=== PATIENT | female | born 1985 | race Caucasian/White ===

== ENCOUNTER 2017-09-29 05:10 | Inpatient (IN) | payer BC ==
[~2017-09-29] VITALS: Ht 167.6 cm; Wt 108.9 kg
[2017-09-29] MEDS ORDERED: OXYTOCIN/NORMAL SALINE 1,000 ML IV SCH (05:20)
[2017-09-29] MEDS ORDERED: NALBUPHINE HCL 10 MG/ML AMP IVP PRN (05:30)
[2017-09-29] MEDS ORDERED: AMPICILLIN SODIUM 2 GM in NS 100 ML IV ONE (05:30)
[2017-09-29] MEDS ORDERED: TERBUTALINE SULFATE 1 MG/ML VIAL SUBCUT ONE (05:30)
[2017-09-29] MEDS ORDERED: AMPICILLIN SODIUM 2 GM VIAL ONE (05:34)
[2017-09-29 05:56] LABS: BASOPHILS % (AUTO) 0.3 % (0.0-2.0); EOSINOPHILS # (AUTO) 0.1 K/uL (0.0-0.4); EOSINOPHILS % (AUTO) 0.8 % (0.0-4.0); HEMOGLOBIN 12.5 g/dL (12.0-16.0); LYMPHOCYTES # (AUTO) 1.4 K/uL (1.0-5.5); LYMPHOCYTES % (AUTO) 12.1 % (20.5-51.5); MEAN CORPUSCULAR HEMOGLOBIN 29 pg (27-31); MEAN CORPUSCULAR HGB CONC 33 % (32-36); MEAN CORPUSCULAR VOLUME 88 fL (79.0-98.0); MONOCYTES # (AUTO) 0.5 K/uL (0.0-1.0); MONOCYTES % (AUTO) 4.7 % (1.7-9.3); NEUTROPHILS # (AUTO) 9.6 K/uL (1.8-7.7); NEUTROPHILS % (AUTO) 82.1 % (40.0-70.0); PLATELET COUNT (AUTO) 241 K/uL (130-430); RED CELL DISTRIBUTION WIDTH 12.4 % (9.0-15.0); WHITE BLOOD COUNT (AUTO) 11.6 K/uL (4.8-10.8)
[2017-09-29 06:05] VITALS: BP_SYST 136
[2017-09-29] MEDS: LR 1,000 ML IV SCH ×2 (06:07→14:12)
[2017-09-29] MEDS ORDERED: FLU VACC QS 2017-18(36MOS+)/PF 0.5 ML/SYR SYRINGE I.M. PRN (06:15)
[2017-09-29] MEDS: AMPICILLIN SODIUM 1 GM in NS 50 ML IV SCH ×3 (10:53→18:47)
[2017-09-29] MEDS ORDERED: FENT2mCg/mL-ROPIVA0.2%/NS EPID 150 ML EP ONE (14:33)
[2017-09-29] MEDS ORDERED: LR 500 ML IV ONE (15:05)
[2017-09-29] MEDS ORDERED: FENT2mCg/mL-ROPIVA0.2%/NS EPID 150 ML EP SCH (15:15)
[2017-09-29] MEDS ORDERED: ePHEDrine sulfate 50 MG/ML VIAL IVP PRN (15:15)
[2017-09-29] MEDS ORDERED: AMPICILLIN SODIUM 1 GM VIAL ONE (18:40)
[2017-09-29] MEDS ORDERED: ACETAMINOPHEN 325 MG TABLET PO PRN (23:15)
[2017-09-29] MEDS ORDERED: CLINDAMYCIN 900 mg/50mL D5W 50 ML IV ONE (23:27)
[2017-09-30] MEDS ORDERED: CLINDAMYCIN 900 MG in D5W 100 ML IV SCH ×2
[2017-09-30] MEDS: CEFAZOLIN 1 GM IVPB PREMIX 50 ML IV SCH (01:54)
[2017-09-30] MEDS: LR 1,000 ML IV SCH ×2 (03:00→11:09)
[2017-09-30] MEDS ORDERED: CEFAZOLIN 2 GM IVPB PREMIX 50 ML IV ONE (10:45)
--- NOTE | 2017-09-30 11:29 | NUR ---
INTEGUMENTARY EVALUATION: Late note for 09/30/17 secondary to patient care. Wound Consult received from Dr. Sow. Thank you, Dr. Sow, for the consult. Patient received in an L&D bed, awake, alert, and oriented. Patient is able to turn in bed independently. 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 Recent Labs: WBC 7.7, RBC 3.57, hemoglobin 10.5, hematocrit 31.1. Intrinsic factors that delay wound healing: Low RBC and H&H counts. Extrinsic factors that delay wound healing: Decreased mobility secondary to epidural. No microbiology reports. Patient is an increased risk for pressure ulcer development secondary to decreased mobility from use of an epidural for pain control. Will focus on having patient turn side to side every 2 hours, with assist as needed, for the duration of the patient's stay. An Isoflex REFUGIO surface with low air loss therapy will be utilized to provide patient a softer pressure redistribution surface with air loss therapy to maintain dry conditions. Integumentary Assessment: 1. Buttocks: Blanchable redness. Firmness to area, right greater than left. Recommend: Place patient on a [place] S3 bed with an Isoflex REFUGIO mattress, and initiate low air loss therapy. Encourage and assist patient as needed with repositioning side to side only every 2 hours with pillow support, and off-load pressure areas with pillows for pressure re-distribution. Perform skin care and monitor skin integrity Q shift.
--- NOTE | 2017-09-30 11:30 | NUR ---
INTEGUMENTARY EVALUATION: Wound Consult received from Dr. Sow. Thank you, Dr. Sow, for the consult. Patient received in an L&D bed, awake, alert, and oriented. Patient is able to turn in bed independently. 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 Recent Labs: WBC 7.7, RBC 3.57, hemoglobin 10.5, hematocrit 31.1, Intrinsic factors that delay wound healing: Extrinsic factors that delay wound healing: Decreased mobility. Microbiology: Wound Assessment: 1. , present on admission. Wound bed is . No odor, no drainage. nasir-wound intact. Measures . Recommend: Cleanse wound with normal saline. Place moisture barrier cream onto nasir-wound. Cover with foam dressing. Perform wound care daily, and as needed for dressing soiling or dislodgement. Also recommend: Reposition patient every 2 hours with pillow support and off-load pressure areas with pillows for pressure re-distribution. Offload, elevate and float bilateral heels with pillows. Perform skin care and monitor skin integrity Q shift. Use moisture barrier cream on buttocks and other moisture susceptible areas QID and as needed for soiling. Place patient on a low air-loss mattress. Addendum: 10/02/17 at 0951 by Patrick Ward RN Note entered in error, please disregard.
[2017-09-30] MEDS ORDERED: LIDOCAINE PF 2%, 200 MG/10 ML AMPUL.LUER (EPIDURAL) INJ ONE (15:50)
[2017-09-30] MEDS ORDERED: LR 1,000 ML IV.SOLN IV ONE (15:50)
[2017-09-30] MEDS ORDERED: MORPHINE SULFATE 10MG/10ML PF AMP EP ONE (15:50)
[2017-09-30] MEDS ORDERED: NS IRRIG SOLN 1000 ML IR ONE (15:50)
[2017-09-30] MEDS ORDERED: ONDANSETRON HCL 4 MG/2 ML VIAL IVP ONE (15:50)
[2017-09-30] MEDS ORDERED: OXYTOCIN 10 UNIT/ML VIAL IV ONE (15:50)
[2017-09-30] MEDS ORDERED: LANOLIN 7 GM OINT. TP PRN (16:00)
[2017-09-30] MEDS ORDERED: LR 1,000 ML IV SCH (16:00)
[2017-09-30] MEDS ORDERED: OXYTOCIN/NORMAL SALINE 1,000 ML IV ONE (16:00)
[2017-09-30] MEDS ORDERED: ONDANSETRON HCL 4 MG/2 ML VIAL IVP PRN (16:00)
[2017-09-30] MEDS ORDERED: KETOROLAC TROMETHAMINE 60 MG/2 ML VIAL IM PRN (16:00)
[2017-09-30] MEDS ORDERED: MORPHINE SULFATE 10MG/10ML PF AMP SP SCH (16:00)
[2017-09-30] MEDS ORDERED: BISACODYL 10 MG/SUPPOSITORY RC PRN (16:00)
[2017-09-30] MEDS ORDERED: DIPHENHYDRAMINE INJ 50 MG/ML VIAL IM PRN (16:00)
[2017-09-30] MEDS ORDERED: MEASLES,MUMPS&RUBELLA VACC/PF 12500 UNIT/0.5 ML VIAL SUBQ PRN (16:00)
[2017-09-30] MEDS ORDERED: NALOXONE HCL 0.4 MG/ML AMP (NARCAN) IVP PRN (16:00)
[2017-09-30] MEDS ORDERED: METOCLOPRAMIDE HCL 10 MG/2 ML VIAL IVP PRN (16:00)
[2017-09-30] MEDS ORDERED: SENNOSIDES/DOCUSATE SODIUM 1 TAB TABLET(SENOKOT-S) PO PRN (16:00)
[2017-09-30] MEDS ORDERED: HYDROcodone/ACETAMIN 5-325 MG TAB (NORCO/ VICODIN) PO PRN (16:00)
[2017-09-30] MEDS ORDERED: SIMETHICONE 80 MG TAB.CHEW PO PRN (16:00)
[2017-09-30] MEDS ORDERED: RHO(D) IMMUNE GLOBULIN/MALTOSE 1500 UNITS/1.3 ML (WINHRO) IM PRN (16:00)
[2017-09-30] MEDS ORDERED: ANUSOL 1 EA SUPP.RECT (PREPARATION H) RC PRN (16:00)
[2017-09-30] MEDS ORDERED: MEPERIDINE HCL/PF 25 MG/ML DISP.SYRIN ONE (16:19)
[2017-09-30 16:27] VITALS: BP_SYST 134
[2017-09-30] MEDS ORDERED: TEMAZEPAM 15 MG CAPSULE PO PRN (21:00)
[2017-10-01] MEDS ORDERED: KETOROLAC TROMETHAMINE 30 MG VIAL IVP SCH
[2017-10-01 06:47] LABS: BASOPHILS % (AUTO) 0.3 % (0.0-2.0); EOSINOPHILS # (AUTO) 0.1 K/uL (0.0-0.4); EOSINOPHILS % (AUTO) 0.8 % (0.0-4.0); HEMATOCRIT 31.1 % (36-48); HEMOGLOBIN 10.6 g/dL (12.0-16.0); LYMPHOCYTES # (AUTO) 1.1 K/uL (1.0-5.5); MEAN CORPUSCULAR HEMOGLOBIN 30 pg (27-31); MEAN CORPUSCULAR HGB CONC 34 % (32-36); MEAN CORPUSCULAR VOLUME 87 fL (79.0-98.0); MONOCYTES # (AUTO) 0.6 K/uL (0.0-1.0); MONOCYTES % (AUTO) 7.3 % (1.7-9.3); NEUTROPHILS # (AUTO) 5.8 K/uL (1.8-7.7); NEUTROPHILS % (AUTO) 77.6 % (40.0-70.0); PLATELET COUNT (AUTO) 171 K/uL (130-430); RED BLOOD CELL COUNT(AUTO) 3.57 MIL/uL (4.2-6.2); RED CELL DISTRIBUTION WIDTH 12.8 % (9.0-15.0); WHITE BLOOD COUNT (AUTO) 7.7 K/uL (4.8-10.8)
[2017-10-01] MEDS: CEFAZOLIN 1 GM IVPB PREMIX 50 ML IV SCH ×2 (07:34→13:18)
[2017-10-01] MEDS: DOCUSATE SODIUM 100 MG CAPSULE PO PRN ×2 (11:57→20:18)
[2017-10-01] MEDS: IBUPROFEN 600 MG TABLET PO SCH (17:11)
[2017-10-01] MEDS: OXYCODONE/ACETAMINOPHEN 5-325 TABLET PO PRN ×2 (17:11→20:18)
[2017-10-02] MEDS: IBUPROFEN 600 MG TABLET PO SCH ×3 (00:54→12:48)
[2017-10-02] MEDS: OXYCODONE/ACETAMINOPHEN 5-325 TABLET PO PRN ×4 (00:55→12:49)
--- NOTE | 2017-10-02 09:51 | NUR ---
INTEGUMENTARY RE-EVALUATION: Patient received ambulating in room, and has a [place] S3 bed with an Isoflex REFUGIO mattress, with low air loss therapy initiated, awake, alert, and oriented. Patient is able to turn in bed independently. Patient is an increased risk for pressure ulcer development secondary to decreased mobility from use of an epidural for pain control over an extended period of time. Epidural has since been discharged since delivery of baby, and patient is ambulatory independently. Focus will still be on on having patient turn side to side every 2 hours, as well as frequent periods of ambulation for the duration of the patient's stay. An Isoflex REFUGIO surface with low air loss therapy will be continued to provide patient a softer pressure redistribution surface with air loss therapy to maintain dry conditions. Integumentary Assessment: 1. Buttocks: Blanchable redness. Decreased firmness to right buttock area, left buttock area has normal feel to tissue. No other discoloration noted to involved areas. Recommend continue: Place patient on a [place] S3 bed with an Isoflex REFUGIO mattress, with low air loss therapy. Encourage patient to continue repositioning side to side only every 2 hours with pillow support, and to ambulate frequently. Off-load pressure areas with pillows for pressure re-distribution. Perform skin care and monitor skin integrity Q shift.
== END 2017-10-02 15:20 | disposition home or self-care (01) | DRG 766 ==
LOC: SPU 05:10
PROVIDERS: ADMIT Specialist; ATTEND Specialist
PROC: 0UL70CZ Occlusion of Bilateral Fallopian Tubes with Extraluminal Device, Open Approach (ICD-10-PCS; 2017-09-30)
PROC: 3E0134Z Introduction of Serum, Toxoid and Vaccine into Subcutaneous Tissue, Percutaneous Approach (ICD-10-PCS; 2017-09-30)
PROC: 10D00Z1 Extraction of Products of Conception, Low, Open Approach (ICD-10-PCS; principal; 2017-09-30 14:30)
DX: O36.63X0 Maternal care for excessive fetal growth, third trimester, not applicable or unspecified (principal); O61.9 Failed induction of labor, unspecified; O09.43 Supervision of pregnancy with grand multiparity, third trimester; Z37.0 Single live birth; O33.9 Maternal care for disproportion, unspecified; O32.4XX0 Maternal care for high head at term, not applicable or unspecified; O62.2 Other uterine inertia; O69.1XX0 Labor and delivery complicated by cord around neck, with compression, not applicable or unspecified; Z30.2 Encounter for sterilization; Z3A.39 39 weeks gestation of pregnancy; Z23 Encounter for immunization
CPT/HCPCS: 36415; 81002-TC; 85025; 86592; 86870; 86886; 86900; 86901; 94760; J0290; J0690; J1885; J2001; J2175; J2274; J2405; J2590; J3010; J3490; J7060; J7120